=== PATIENT | female | born 1975 | race Two or more races ===

== ENCOUNTER → 2024-12-22 | Outpatient (CLI) | payer BC, SELFPAY ==
--- NOTE | 2024-12-22 | XR_ITS ---
Examination: Bilateral hips, AP pelvis, 5 views Technique: AP, lateral views both hips, AP pelvis, 5 views Exam date and time: December 22, 2024 0852 hours INDICATIONS: Bilateral hip pain beginning 5 years ago FINDINGS: Moderate osteopenia Mild narrowing hip joints No right or left hip fracture or dislocation No avascular necrosis Bones the pelvis intact IMPRESSION: Mild narrowing hip joints
--- NOTE | 2024-12-22 | XR_ITS ---
Examination: Shoulder,right, 3 views Technique: Shoulder AP internal rotation, AP external rotation, Y view shoulder, 3 views Exam date and time :December 14, 2024 0852 hours INDICATIONS: Right shoulder pain beginning 3 weeks ago. FINDINGS: Mild osteoarthritis right glenohumeral joint Mild osteoarthritis acromioclavicular joint No shoulder fracture or dislocation No calcific tendinitis IMPRESSION: Mild osteoarthritis
== END | disposition home or self-care (01) ==
PROVIDERS: Referring Provider Nurse Practitioner Family; Visit Provider Orthopaedic Surgery
DX: M19.011 Primary osteoarthritis, right shoulder (principal); M25.852 Other specified joint disorders, left hip; M25.851 Other specified joint disorders, right hip
CPT/HCPCS: 73030; 73523

== ENCOUNTER 2025-07-18 19:58 | Emergency (ER) | payer BC, SELFPAY ==
[2025-07-18 19:58] VITALS: BMI 26.9
[2025-07-18 21:12] VITALS: BP 121/80; PULSE 80; RESP 18; TEMP 36.8; O2SAT 99
--- NOTE | 2025-07-18 21:18 | XR_ITS ---
Examination: CT abdomen and pelvis without contrast. Coronal 3-D reconstructions. Sagittal 2-D reconstructions. Date and time of exam:July 18, 2025 2236 hours INDICATIONS: Lower abdominal pain beginning this morning CTDI: vol (mGy): 8.64 DLP: (mGycm): 435 Technique: Axial images of the abdomen have been obtained, 3 mm slice thickness Intravenous contrast material has not been administered. Low dose protocols were performed. One or more of the following dose reduction techniques were used; automated exposure control, adjustment of the mA and/or KV according to patient size, use of iterative reconstruction technique. Findings: 35 mm left lobe liver cyst No focal liver or splenic lesions No gallstones No pancreatic or adrenal mass No renal or ureteral calculi, no hydronephrosis Aorta normal size Normal appendix No bowel obstruction Enlarged fundus of the uterus Urinary bladder intact Intravenous degenerative disc disease L5-S1 IMPRESSION: Normal appendix No renal or ureteral calculi, no hydronephrosis No bowel obstruction Enlarged fundus of uterus, consider pelvic sonography follow-up pelvic sonography follow-up
--- NOTE | 2025-07-18 21:20 | PD.EDRME ---
Rapid Medical Screening Exam RME Arrival date/time: 07/18/25 19:58 This is a case of 49-year-old female with history of fibroids came in in the emergency room due to right lower quadrant pain and vomiting for 2 days due to worsening of the symptoms this patient decided to sought consult here in the emergency room Chief Complaint: Abdominal Pain Vital signs: Vital Signs Temperature 98.2 F 07/18/25 21:12 Pulse Rate 80 07/18/25 21:12 Respiratory Rate 18 07/18/25 21:12 Blood Pressure 121/80 07/18/25 21:12 Pulse Oximetry (%) 99 07/18/25 21:12 Oxygen Delivery Method Room Air 07/18/25 21:12
[2025-07-18 21:35] LABS: Basophils # (Auto) 0.0 Thou/mm3 (0.0-0.2); Basophils % (Auto) 1 % (0-2.5); Eosinophils # (Auto) 0.4 Thou/mm3 (0.0-0.5); Eosinophils % (Auto) 6 % (0-10); Hematocrit 36.8 % (36.0-46.0); Hemoglobin 12.3 g/dL (12.0-16.0); Immature Granulocytes Auto 0.02 Thou/mm3 (0.00-0.00); Lymphocytes # (Auto) 2.4 Thou/mm3 (1.0-4.8); Lymphocytes % (Auto) 32 % (10-50); Mean Corpuscular HGB Conc 33.4 g/dl (31.0-37.0); Mean Corpuscular Hemoglobin 29.5 pg (25.0-35.0); Mean Corpuscular Volume 88 fL (80-100); Monocytes # (Auto) 0.5 Thou/mm3 (0.0-0.8); Monocytes % (Auto) 7 % (0-12); Neutrophils # (Auto) 4.3 Thou/mm3 (1.8-7.7); Neutrophils % (Auto) 55 % (37-80); Nucleated Red Blood Cell # 0.00 Thou/mm3 (0.00-0.00); Nucleated Red Blood Cell % 0 /100 WBC (0); Platelet Count 234 Thou/mm3 (140-440); RDW Standard Deviation 40.3 fL (36.4-46.3); Red Blood Count 4.17 Miln/mm3 (4.00-5.20); White Blood Count 7.7 Thou/mm3 (3.6-11.0)
[2025-07-18 21:47] VITALS: BP 131/85; PULSE 76; RESP 16; TEMP 36.8; O2SAT 99
--- NOTE | 2025-07-18 21:52 | EDNOTE_ITS ---
ED Abdominal Pain RME/HPI General Chief Complaint: Abdominal Pain Stated complaint: RIGHT LOWER QUAD PAIN, VOMITING Arrival date/time: 07/18/25 19:58 RME / HPI RME / HPI narrative: 07/18/25 19:58 This is a case of 49-year-old female with history of fibroids came in in the emergency room due to right lower quadrant pain and vomiting for 2 days due to worsening of the symptoms this patient decided to sought consult here in the emergency room Dr. Sanchez?[facility] Main ED Evaluation: 49yo female with a history of uterine fibroids presents to the ED for a chief complaint of right pelvic pain x last night. Pain radiates to her groin area and got progressively worse today, so she came in for evaluation. She does have chronic back pain. Patient reports associated urinary frequency and an emetic episode today. Denies any dysuria, urgency or any otehr associated symptoms. She has not had her menses for 2 years. NKA. Related Data Home Medications ?Medication ?Instructions ?Recorded ?Confirmed hydrocodone 10 mg-acetaminophen 1 tab PO DAILY 2 06/18/23 325 mg tablet Held on 06/18/23. Instructions: Resume on 06/19/23. sumatriptan succinate 100 mg 100 mg PO Q2H PRN Migrain e Headache 02/23/22 06/18/23 tablet (Imitrex) ondansetron 4 mg disintegrating 4 mg PO Q4HR PRN Nause a 06/18/23 06/18/23 tablet Allergies Allergy/AdvReac Type Severity Reaction Status Date / Time No Known Allergies Allergy Verified 06/18/23 10:19 Review of Systems Review of Systems Systems Reviewed: All systems reviewed, normal except as documented Past Medical History Past Medical History NEUROLOGIC: Positive Neurological Disorders and Migraine (PO MED); Negative Seizures CARDIAC: Negative Cardiac Disorders, Congestive Heart Failure, Edema, Cellulitis or Varicose Veins RESPIRATORY: Positive Tuberculosis (2004 TB TREATED); Negative Chronic Obstructive Pulmonary Disease (COPD) or Sleep Apnea GASTROINTESTINAL: Positive Gastrointestinal Disorders (ESOPHAGEAL ULCER 2020 HAD EGD), Ulcer (ESOPHAGEAL ULCER) and Gastroesophageal Reflux Disease (TAKES OTC PRILOSEC); Negative Hepatitis GENITOURINARY: Negative Genitourinary Disorders or Renal Disease REPRODUCTIVE: Positive Previous Pregnancies (X3) MUSCULOSKELETAL: Positive Musculoskeletal Disorders (BULGING DISC L4-3-2,NARROWING L5-S1,CYST L3) and Degenerative Disk Disease ENDOCRINE: Positive Endocrine Disorders (THYROID NODULES); Negative Diabetes Mellitus Type 1 or Diabetes Mellitus Type 2 HEMATOLOGIC: Negative Blood Disorders OTHER HISTORY: Positive Chicken Pox; Negative Hospitalization, Autoimmune Disease, Shingles, Falls, Blood Transfusions, Blood Transfusion Reaction, Anesthesia Reactions, Chemotherapy, Radiation Therapy, MRSA, Measles, Mumps, Clostridium Difficile or Cancer Family History FAMILY HISTORY: Positive Family Cardiac Disorders (MOTHER (HTN)) and Family Surgery (FATHER,MOTHER); Negative Family Psychiatric Problems, Family Respiratory Disorders, Family Gastrointestinal Problems, Family Cancer or Family Anesthesia Reaction Surgical History SURGICAL: Positive Tubal Ligation; Negative Pacemaker Social History SMOKING STATUS: Never smoker ED Exam Narrative Physical exam: Generally patient is alert oriented x 3 in no obvious distress. Heart is regular rate and rhythm. Lungs clear to auscultation equal bilaterally. Abdomen soft bowel sounds present nondistended nontender. External pelvic exam showed the patient have right adnexal tenderness without rebound. Course Quality Measures none Orders Category Date Time Status CT abdomen pelvis wo con Stat Exams 07/18/25 21:18 Completed US transvaginal Stat Exams 07/18/25 22:48 Completed CBC Stat Lab 07/18/25 21:29 Completed Comprehensive Metabolic Panel Stat Lab 07/18/25 21:29 Completed HCG Qualitative,Urine Stat Lab 07/18/25 21:41 Completed Lipase Stat Lab 07/18/25 21:29 Completed Urinalysis Stat Lab 07/18/25 21:41 Completed Ketorolac Inj [Toradol Inj] Med 07/18/25 21:56 Discontinued 60 mg IM X1 ONE Vital Signs Vital signs: Vital Signs Temperature 98.2 F 07/18/25 21:12 Pulse Rate 80 07/18/25 21:12 Respiratory Rate 18 07/18/25 21:12 Blood Pressure 121/80 07/18/25 21:12 Pulse Oximetry (%) 99 07/18/25 21:12 Oxygen Delivery Method Room Air 07/18/25 21:12 Abdominal Pain MDM MDM Narrative MDM Narrative:: Scribe Attestation: 07/18/25 - Esther Charles, gopi scribing for and in the presence of Dr. Sanchez. I interpreted all labs. is negative. Urine is not infected. CT scan done the abdomen pelvis without contrast showed no acute abnormality. Pelvic ultrasound showed 2 small uterine fibroids. Ovaries were nonvisualized. I had a long discussion with the patient. It is uncertain whether or not the patient has an ovarian cyst because the ovaries were not will demonstrated on pelvic ultrasound. I do not believe this patient have ovarian torsion. She will be discharged home in stable condition to take 800 mg ibuprofen every 8 hours as needed for pain and 650 mg of Tylenol every 4 hours as needed for pain. Follow- up with her [facility] physician. Return to ER as needed or if condition worsens. Patient data External records reviewed:: [facility] previous records (Per chart review, patient has no previous ED visits to this facility.) Clinical information provided by:: patient Social determinants that could affect healthcare access:: none Patient has the following chronic illnesses:: GERD, esophageal ulcer How is presenting disease/condition affected by chronic disease/condition?: uneffected by Evaluation data The following diagnostics were reviewed and interpreted by me:: lab results and radiology exam(s) Lab and/or radiology exams considered but not ordered:: none Interpretation Summary: [facility] Signed Patient: LEWIS HUMPHREYS. Record#: [id number] Birthdate: 1975 Age/Sex: 49 / F Location: [facility], [place] Attending Dr: Ordering Physician: Debora Zuñiga Date of Service: 07/18/25 Procedure(s): US transvaginal Accession Number(s): [id number] cc: Mukesh Darling MD; NO PRIMARY/FAMILY,PHYSICIAN; Debora Zuñiga~ Examination: Transvaginal ultrasound of the pelvis, complete Technique: Transvaginal sonographic images pelvis performed using rahman scale imaging Exam date and time: July 18, 2025 10:50 PM INDICATIONS: Pelvic pain beginning 2 days ago FINDINGS: Uterus 9.9 cm uterine area of fibroid degeneration, 2 masses, the largest 4.8 x 4.2 x 4.4 cm in the fundus Ovaries obscured by bowel gas IMPRESSION: Uterine areas of fibroid degeneration Recommend six-month follow-up Transvaginal pelvic sonography. Dictated By: Mukesh Darling MD Signed By: <Electronically signed by Mukesh Darling MD in OV> 07/18/25 2329 [facility] Report Signed Patient: LEWIS HUMPHREYS Record#: [id number] Birthdate: 1975 Age/Sex: 49 / F Location: [facility] Attending Dr: Ordering Physician: Debora Zuñiga Date of Service: 07/18/25 Procedure(s): CT abdomen pelvis wo con Accession Number(s): [id number] cc: Mukesh Darling MD; NO PRIMARY/FAMILY,PHYSICIAN; Debora Zuñiga~ Examination: CT abdomen and pelvis without contrast. Coronal 3-D reconstructions. Sagittal 2-D reconstructions. Date and time of exam:July 18, 2025 2236 hours INDICATIONS: Lower abdominal pain beginning this morning CTDI: vol (mGy): 8.64 DLP: (mGycm): 435 Technique: Axial images of the abdomen have been obtained, 3 mm slice thickness Intravenous contrast material has not been administered. Low dose protocols were performed. One or more of the following dose reduction techniques were used; automated exposure control, adjustment of the mA and/or KV according to patient size, use of iterative reconstruction technique. Findings: 35 mm left lobe liver cyst No focal liver or splenic lesions No gallstones No pancreatic or adrenal mass No renal or ureteral calculi, no hydronephrosis Aorta normal size Normal appendix No bowel obstruction Enlarged fundus of the uterus Urinary bladder intact Intravenous degenerative disc disease L5-S1 IMPRESSION: Normal appendix No renal or ureteral calculi, no hydronephrosis No bowel obstruction Enlarged fundus of uterus, consider pelvic sonography follow-up pelvic sonography follow-up Dictated By: Mukesh Darling MD Signed By: <Electronically signed by Mukesh Darling MD in OV> 07/18/25 8228 Medications / Prescriptions Medications or Prescriptions considered but not ordered:: none Medication administrations:: Medication Administration History Discontinued Medications Ketorolac Tromethamine (Ketorolac Inj 60 Mg/2 Ml Vial) 60 mg IM X1 ONE Stop: 07/18/25 21:57 Last Admin: 07/18/25 22:10 Dose: 60 mg Documented By: SM see above Consultations Consultation(s) initiated? (list below): No Diagnosis Differential diagnosis abdominal pain: calculus of kidney and other (UTI, hernia, uterine fibroids) Most likely diagnosis given after review of the tests above:: see clinical impression below Admission Indicated Admission indicated?: not indicated Explain why admission is indicated or not indicated:: With no condition needing emergent intervention, there was no indication for admission. Admission Request Was there a request for admission?: No Disposition Plan Disposition Plan: Discharge Discharge Attestation Discharge Attestation: The patient and all family members were given an opportunity to ask questions and understood the discharge instructions. Discharge instructions specifically effects, indications for sooner follow up or return to the emergency department, and the expected course of current diagnosis. Patient condition: Stable Discharge Plan Plan Patient Disposition: HOME (Self Care) Prescriptions/Referrals Prescriptions/Med Rec: No Action sumatriptan succinate [Imitrex] 100 mg Tablet 100 mg PO Q2H PRN (Reason: Migraine Headache) hydrocodone-acetaminophen 10-325 mg Tablet 1 tab PO DAILY ondansetron 4 mg tablet,disintegrating 4 mg PO Q4HR PRN (Reason: Nausea) Patient Comments: PLACE ONE TABLET ON TOP OF THE TONGUE AND ALLOW TO DISSOLVE THEN SWALLOW Referrals: No Primary/Family,Physician [Primary Care Provider] - In 1 week Problem List Clinical Impression: Uterine fibroid Patient/Caregiver Discharge Instructions Education Materials: ED Uterine Fibroids Additional Instructions: You may take 800 mg of ibuprofen every 8 hours as needed for pain as well as Tylenol 650 mg every 4 hours as needed for pain. Follow-up with your [facility] physician. Return to ER as needed or if condition worsens. Print Language: Citizen [place] Stand Alone Forms: Sarah[facility] Award Info., Patient Portal Info Letter
[2025-07-18 21:53] LABS: Collection Type, Urine Clean Catch
[2025-07-18 21:56] LABS: Bilirubin,Urine Negative (Negative); Blood,Urine Negative (Negative); Clarity,Urine Clear (Clear/Hazy); Color,Urine Lt-Yellow (Lt Yel-Yel); Glucose, Urine Negative (Negative); Ketones,Urine Negative (Negative); Leukocyte Esterase,Urine Negative (Negative); Nitrite,Urine Negative (Negative); PH,Urine 6.0 (5.0-7.0); Protein,Urine Negative (Neg - Trace); RBC,Urine 5 /hpf (0-3); Specific Gravity,Urine 1.026 (1.001-1.035); Squamous Epithelial Cell,Urine 4 /hpf (0-5); Urobilinogen,Urine 2.0 mg/dL (0.0-1.0); WBC,Urine 1 /hpf (0-5)
[2025-07-18 21:58] LABS: HCG Qualitative,Urine Negative
[2025-07-18 22:05] LABS: Alanine Aminotransferase 9 U/L (10-49); Albumin, Serum 4.1 gm/dL (3.5-5.0); Albumin/Globulin Ratio 2.0 (1.2-2.2); Alkaline Phosphatase 55 U/L (46-116); Anion Gap 9 (7-16); Aspartate Amino Transferase 15 U/L (0-34); BUN/Creatinine Ratio 24 Ratio (12-20); Bilirubin,Total 0.3 mg/dL (0.3-1.2); Blood Urea Nitrogen 17 mg/dL (9-23); Calcium 10.0 mg/dL (8.3-10.6); Calcium (Corrected) 10.0 mg/dL (8.5-10.1); Carbon Dioxide 26.6 mMol/L (20.0-31.0); Chloride 107 mMol/L (98-107); Creatinine (Component) 0.7 mg/dL (0.6-1.3); Estimated Creatinine Clearance 92.0 mL/min (>60); Globulin 2.1 gm/dL (2.3-3.5); Glucose 97 mg/dL (74-106); Lipase 37 U/L (12-53); Osmolality,Calculated 286 (275-295); Potassium 3.9 mMol/L (3.4-5.1); Sodium 143 mMol/L (136-145); Total Protein 6.2 gm/dL (5.7-8.2); eGFR > 60 See Note
[2025-07-18] MEDS: KETOROLAC INJ 60 MG/2 ML VIAL IM (22:10)
--- NOTE | 2025-07-18 22:48 | XR_ITS ---
Examination: Transvaginal ultrasound of the pelvis, complete Technique: Transvaginal sonographic images pelvis performed using rahman scale imaging Exam date and time: July 18, 2025 10:50 PM INDICATIONS: Pelvic pain beginning 2 days ago FINDINGS: Uterus 9.9 cm uterine area of fibroid degeneration, 2 masses, the largest 4.8 x 4.2 x 4.4 cm in the fundus Ovaries obscured by bowel gas IMPRESSION: Uterine areas of fibroid degeneration Recommend six-month follow-up Transvaginal pelvic sonography.
== END 2025-07-18 23:55 | disposition home or self-care (01) ==
PROVIDERS: Nurse Practitioner Family; Emergency Provider Emergency Medicine
DX: D25.9 Leiomyoma of uterus, unspecified (principal)
CPT/HCPCS: 36415; 74176; 76830; 80053; 81001; 81025; 83690; 85025; 96372; 99283; J1885

== ENCOUNTER → 2025-08-24 | Outpatient (CLI) | payer BC, SELFPAY ==
--- NOTE | 2025-08-24 | XR_ITS ---
Examination: PA lateral chest 2 views Technique: Upright PA lateral chest 2 views Date and time: August 24, 2025, 0730 hrs., Comparison April 27, 2021 Indications: Preop Findings: Normal heart size. Lungs are clear. The osseous structures are intact Impression: No active disease
[2025-08-24 09:03] LABS: Basophils # (Auto) 0.0 Thou/mm3 (0.0-0.2); Basophils % (Auto) 1 % (0-2.5); Eosinophils # (Auto) 0.2 Thou/mm3 (0.0-0.5); Eosinophils % (Auto) 3 % (0-10); Hematocrit 39.8 % (36.0-46.0); Hemoglobin 13.1 g/dL (12.0-16.0); Immature Granulocytes Auto 0.01 Thou/mm3 (0.00-0.00); Lymphocytes # (Auto) 1.5 Thou/mm3 (1.0-4.8); Lymphocytes % (Auto) 27 % (10-50); Mean Corpuscular HGB Conc 32.9 g/dl (31.0-37.0); Mean Corpuscular Hemoglobin 29.4 pg (25.0-35.0); Mean Corpuscular Volume 89 fL (80-100); Monocytes # (Auto) 0.4 Thou/mm3 (0.0-0.8); Monocytes % (Auto) 7 % (0-12); Neutrophils # (Auto) 3.4 Thou/mm3 (1.8-7.7); Neutrophils % (Auto) 62 % (37-80); Nucleated Red Blood Cell # 0.00 Thou/mm3 (0.00-0.00); Nucleated Red Blood Cell % 0 /100 WBC (0); Platelet Count 241 Thou/mm3 (140-440); RDW Standard Deviation 40.1 fL (36.4-46.3); Red Blood Count 4.46 Miln/mm3 (4.00-5.20); White Blood Count 5.5 Thou/mm3 (3.6-11.0)
[2025-08-24 09:30] LABS: Alanine Aminotransferase 11 U/L (10-49); Albumin, Serum 4.3 gm/dL (3.5-5.0); Albumin/Globulin Ratio 2.2 (1.2-2.2); Anion Gap 9 (7-16); Aspartate Amino Transferase 18 U/L (0-34); BUN/Creatinine Ratio 22 Ratio (12-20); Bilirubin,Total 0.5 mg/dL (0.3-1.2); Blood Urea Nitrogen 13 mg/dL (9-23); Calcium 9.8 mg/dL (8.3-10.6); Calcium (Corrected) 9.8 mg/dL (8.5-10.1); Carbon Dioxide 26.3 mMol/L (20.0-31.0); Chloride 108 mMol/L (98-107); Creatinine (Component) 0.6 mg/dL (0.6-1.3); Globulin 2.0 gm/dL (2.3-3.5); Glucose 86 mg/dL (74-106); Osmolality,Calculated 284 (275-295); Potassium 4.2 mMol/L (3.4-5.1); Sodium 143 mMol/L (136-145); Total Protein 6.3 gm/dL (5.7-8.2); eGFR > 60 See Note
[2025-08-24 10:54] LABS: Alkaline Phosphatase 60 U/L (46-116)
--- NOTE | 2025-08-24 11:58 | EKG_ITS ---
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
== END | disposition home or self-care (01) ==
PROVIDERS: PCP Physician Assistant; Referring Provider Obstetrics & Gynecology Female Pelvic Medicine and Reconstructive Surgery; Visit Provider Physician Assistant
DX: Z01.810 Encounter for preprocedural cardiovascular examination (principal); Z01.811 Encounter for preprocedural respiratory examination; Z01.812 Encounter for preprocedural laboratory examination
CPT/HCPCS: 36415; 71046; 80053; 85025; 93005